=== PATIENT | male | born 1980 | race Caucasian/White ===

== ENCOUNTER 2017-11-11 20:10 | Emergency (ER) | payer SELFPAY ==
[~2017-11-11] VITALS: Ht 175.3 cm; Wt 82.0 kg
[2017-11-11] MEDS ORDERED: HYDROCODONE/ACETAMINOPHEN 5/325MG TABLET PO ONE (21:15)
[2017-11-11 23:45] VITALS: BP 110/61
== END 2017-11-12 00:01 | disposition home or self-care (01) ==
LOC: ER 20:13
DX: S82.831A Other fracture of upper and lower end of right fibula, initial encounter for closed fracture (principal); S82.301A Unspecified fracture of lower end of right tibia, initial encounter for closed fracture; F12.90 Cannabis use, unspecified, uncomplicated; W01.0XXA Fall on same level from slipping, tripping and stumbling without subsequent striking against object, initial encounter; Y93.89 Activity, other specified; Y92.098 Other place in other non-institutional residence as the place of occurrence of the external cause
CPT/HCPCS: 29515; 73590; 73600; 99284